=== PATIENT | male | born 1965 | race Caucasian/White ===

== ENCOUNTER 2018-11-17 01:15 | Emergency (ER) | payer MEDICAID ==
[~2018-11-17] VITALS: Ht 177.8 cm; Wt 102.1 kg
[2018-11-17 01:47] VITALS: BP 147/106
[2018-11-17] MEDS ORDERED: IBUPROFEN 800 MG TAB PO ONE (01:50)
[2018-11-17] MEDS ORDERED: AMOXIL/CLAVULANATE 875/125 MG 1 TAB PO ONE (01:50)
--- NOTE | 2018-11-17 01:54 | NUR ---
PT AMBULATED TO ROOM 07 WITH STEADY GAIT.
[2018-11-17 02:00] VITALS: BP 147/106
[2018-11-17] MEDS ORDERED: AMOXICILLIN 500 MG CAP PO ONE (02:00)
--- NOTE | 2018-11-17 02:00 | NUR ---
53 Y/ O M PRESENTED TO ED WITH C/O R SIDE FACIAL PAIN X1 WEEK. AAOX4. PER PT "THE PAIN STARTED IN MY TOOTH NOW ITS JUST THE WHOLE SIDE OF MY FACE." PT HAS NOT BEEN TO SEE DENTIST FOR TOOTHACHE. WILL CONTINUE TO MONITOR.
--- NOTE | 2018-11-17 02:15 | NUR ---
Patient discharged with v/s stable. Written and verbal after care instructions given and explained. Patient alert, oriented and verbalized understanding of instructions. Ambulatory with steady gait. All questions addressed prior to discharge. ID band removed. Patient advised to follow up with PMD. Rx of Augmentin and motrin given. Patient educated on indication of medication including possible reaction and side effects. Opportunity to ask questions provided and answered.
== END 2018-11-17 02:15 | disposition home or self-care (01) ==
LOC: MED 01:15
DX: K04.7 Periapical abscess without sinus (principal); R03.0 Elevated blood-pressure reading, without diagnosis of hypertension; F12.10 Cannabis abuse, uncomplicated
CPT/HCPCS: 99283

== ENCOUNTER 2018-11-17 08:05 | Emergency (ER) | payer MEDICAID ==
[~2018-11-17] VITALS: Ht 172.7 cm; Wt 96.2 kg
[2018-11-17 08:06] VITALS: BP 137/85
--- NOTE | 2018-11-17 08:10 | NUR ---
PT AMBULATED TO ER BED 1
--- NOTE | 2018-11-17 08:13 | NUR ---
53/M BIB SELF C/O RIGHT UPPER TOOTH PAIN X 1 WEEK & seen HERE X 1 AM TODAY. GOT motrin/ augmentin / amoxicillin. MED HX:asthma. PATIENT STATES PAIN OF 10/10 AT THIS TIME. PATIENT POSITIONED FOR COMFORT; HOB ELEVATED; BEDRAILS UP X1; BED DOWN. ER MD MADE AWARE OF PT STATUS.
--- NOTE | 2018-11-17 08:22 | NUR ---
DR. CASTRO BEDSIDE EVALUATING PT
[2018-11-17 08:27] VITALS: BP 137/85
== END 2018-11-17 08:27 | disposition home or self-care (01) ==
LOC: MED 08:05
DX: K02.9 Dental caries, unspecified (principal); R03.0 Elevated blood-pressure reading, without diagnosis of hypertension; J45.909 Unspecified asthma, uncomplicated; F12.10 Cannabis abuse, uncomplicated
CPT/HCPCS: 99283